=== PATIENT | male | born 1940 | race Caucasian/White ===

== ENCOUNTER 2021-09-22 09:54 | Day surgery (SDC) | payer OTHER, MEDICARE ==
[~2021-09-22 09:54] MED LIST: ASPI325EC; CYCL10 PO; GUAPHELA PO; HYDACE5 PO; HYDGUAL120 PO; NAPR500; VARDENAFIL; [UNRECOGNIZED DRUG - REMARK]
== END 2021-09-22 16:42 | disposition home or self-care (01) ==
LOC: ATC 09:54
DX: C67.9 Malignant neoplasm of bladder, unspecified (principal); C79.51 Secondary malignant neoplasm of bone; I10 Essential (primary) hypertension; D64.9 Anemia, unspecified; Z87.891 Personal history of nicotine dependence
CPT/HCPCS: 36415; 36430; 86850; 86900; 86901; 86920; A9270; J1642; J7050; P9016

== ENCOUNTER 2024-01-09 16:07 | Inpatient (IN) | payer OTHER, MEDICARE ==
[~2024-01-09] VITALS: Ht 185.4 cm; Wt 83.2 kg
[2024-01-09] MEDS ORDERED: FentaNYL Citrate 50 MCG/ML 2 ML Injection IV ONE ×2 (16:55→19:00)
[2024-01-09] MEDS ORDERED: Ondansetron HCl 2 MG / ML 2ML Vial IV ONE (17:00)
[2024-01-09] MEDS ORDERED: OXYC5 PO (17:30)
[2024-01-09] MEDS ORDERED: FentaNYL Citrate 50 MCG/ML 2 ML Injection IV PRN (19:00)
[2024-01-09] MEDS ORDERED: Ondansetron HCl 2 MG / ML 2ML Vial IV PRN (19:00)
[2024-01-09] MEDS ORDERED: Metoclopramide HCl 5MG / ML 2ML Vial IV PRN (19:00)
[2024-01-09] MEDS ORDERED: OxyCODONE HCL 5 MG TAB PO PRN (19:05)
[2024-01-09] MEDS ORDERED: Acetaminophen 325 MG TABLET PO PRN (19:05)
[2024-01-09] MEDS ORDERED: NS 1,000 ML IV SCH (19:05)
[2024-01-09 20:05] LABS: Hematocrit 35.2 % (37.0-53.0); Mean Corpuscular HGB 31.6 pg (26.0-34.0); Mean Corpuscular HGB Conc 34.1 g/dL (31.5-36.5); Mean Corpuscular Volume 93 fL (80-100); Mean Platelet Volume 8.7 fL (9.1-12.4); Platelet Count 170 K/mm3 (150-400); RDW Standard Deviation 43.9 fL (35.1-46.3); White Blood Cell Count 10.11 K/mm3 (4.00-11.30)
[2024-01-09] MEDS ORDERED: NS 1,000 ML IV ONE (20:07)
[2024-01-09 20:25] LABS: Albumin, Blood 3.3 g/dL (3.4-5.0); Albumin/Globulin Ratio 1.1 (0.8-1.8); Bilirubin, Total 0.4 mg/dL (0.1-1.0); Bun/Creatinine Ratio 21.2 (12.0-20.0); Calcium, Blood 8.6 mg/dL (8.5-10.1); Creatinine, Blood 0.9 mg/dL (0.60-1.20); Globulin, Blood 2.9 g/dL (2.2-4.0); Potassium, Blood 4.4 mmol/L (3.5-5.5); Total Protein, Blood 6.2 g/dL (6.4-8.2)
[2024-01-09] MEDS ORDERED: Docusate Sodium 100 MG Cap PO SCH (21:00)
[2024-01-09] MEDS ORDERED: Norco 10-325 T1 EACH PO (21:08)
[2024-01-09 21:10] VITALS: BP 143/77
--- NOTE | 2024-01-09 21:12 | NUR ---
ARRIVAL TO UNIT PT ARRIVED TO UNIT FROM ER BY SOTO. PT TRANSFERRED OVER TO BED USING SLIDER SHEET. ALL EXTRA LINENS OUT FROM UNDER PT. PT ABLE TO ANSWER ALL QUESTIONS ASKED. PT IN PAIN FROM BEING MOVED AROUND, MEDICATED PER EMAR. PT ABLE TO WIGGLE TOES, DENIES N/T TO LLE. PT HAS SOME SWELLING IN L THIGH. PT ON 2 L NC DUE TO DESATTING WHEN GIVEN IV NARCOTICS. VSS. PT WILL BE NPO AT [facility] FOR POSSIBLE SURGERY TMRROW. CALL LIGHT WITHIN REACH
[2024-01-10] VITALS (23 sets, daily range): BP systolic 110–169; BP diastolic 59–86
--- NOTE | 2024-01-10 04:46 | NUR ---
SHIFT SUMMARY NO ACUTE CHANGES SINCE COMING TO THE FLOOR. PT RESTED T/O THE NIGHT. PAIN MANAGED PER EMAR. PT ABLE TO WIGGLE TOES ON LLE. PT ON 2L NC TO MAINTAIN SATS ABOVE 92%. VSS. NO OTHER CONCERNS AT THIS TIME, CALL LIGHT WITHIN REACH
[2024-01-10] MEDS ORDERED: Lactated Ringer's 1,000 ML IV SCH (10:00)
[2024-01-10] MEDS ORDERED: Bupivacaine 0.5% Inj 10 ML Vial ONE (10:18)
[2024-01-10] MEDS ORDERED: CeFAZolin Sodium 2,000 MG in NS 100 ML IV SCH (10:20)
[2024-01-10] MEDS ORDERED: Tranexamic Acid 100 ML IV SCH (10:21)
--- NOTE | 2024-01-10 10:26 | NUR ---
PT HERE FROM 215 VIA BED FOR LEFT TFN. PT WAS CONSENTED BY DR. AMES IN ROOM W/ PRESENT. Pre-Op teaching done. Pt verbalizes understanding. History, Chart, Medications and Allergies reviewed before start of procedure.Patient confirms NPO status and agrees with scheduled surgery.
--- NOTE | 2024-01-10 10:35 | NUR ---
PT TO OR
[2024-01-10] MEDS ORDERED: FentaNYL Citrate 50 MCG/ML 2 ML Injection ONE ×2 (10:39→12:26)
[2024-01-10] MEDS ORDERED: propofoL 20 ML IV ONE (10:39)
[2024-01-10] MEDS ORDERED: Rocuronium Bromide 10 MG/ML 5ML Injection IV ONE (11:07)
[2024-01-10] MEDS ORDERED: HYDROmorphone HCl/Pf 1MG SYR ONE ×2 (11:11→12:12)
[2024-01-10] MEDS ORDERED: Metoclopramide HCl 5MG / ML 2ML Vial ONE (11:39)
[2024-01-10] MEDS ORDERED: Ondansetron HCl 2 MG / ML 2ML Vial ONE (11:39)
[2024-01-10] MEDS ORDERED: Bupivacaine 0.5% Inj 50 ML Vial ONE (11:47)
[2024-01-10] MEDS ORDERED: Sugammadex Sodium 200 MG/2ML SDV (100 MG/ML) ONE (11:59)
--- NOTE | 2024-01-10 14:05 | NUR ---
PT BACK TO 215 FROM PACU. AQUACEL DRESSINGS X3 TO LLE. PLACED ON TELE, SR @ 89. CALL LIGHT IN REACH. PROVIDED WATER AND JELLO. ORDERED MEAL TRAY. LAB IN TO DRAW PATIENT. BEDSIDE. CALL LIGHT IN REACH.
[2024-01-10 14:35] LABS: Bun/Creatinine Ratio 21.2 (12.0-20.0); Calcium, Blood 7.8 mg/dL (8.5-10.1); Creatinine, Blood 0.9 mg/dL (0.60-1.20); Magnesium, Blood 1.9 mg/dL (1.6-2.4); Potassium, Blood 4.2 mmol/L (3.5-5.5); Thyroid Stimulating Hormone 3.1 uIU/mL (0.360-4.800)
--- NOTE | 2024-01-10 14:58 | NUR ---
TURNED OVER CARE TO HALLEY Ibanez RN.
--- NOTE | 2024-01-10 15:10 | NUR ---
CARE ASSUMED OF PT. PT AWAKE, ALERT AND ORIENTED, HE PARTICIPATED WITH BEDSIDE REPORT. PT REPORTS PAIN IS MANAGED AT THIS TIME.
--- NOTE | 2024-01-10 17:08 | NUR ---
SHIFT SUMMARY PT IS POD#0 FROM L HIP REPAIR. PAIN MANAGED WITH PO PAIN MEDICATION. NO CHANGES TO REPORT SINCE CARE ASSUMED OF PT.
[2024-01-11] MEDS ORDERED: OxyCODONE HCL 5 MG TAB PO PRN (01:08)
[2024-01-11 02:41] VITALS: BP 126/69
--- NOTE | 2024-01-11 04:40 | NUR ---
SHIFT SUMMARY POD 1 L HIP NAILING PT ABLE TO REST DURING THE NIGHT. PAIN MANAGED PER EMAR. TOLERATING PO INTAKE. VOIDING. PT HAS NOT BEEN OOB. PT ON 1L NC TO MAINTAIN SATS ABOVE 92%. PT HAS X3 AQUACEL TO L HIP, ALL C/D/I. PT DENIES N/T TO LE'S, ABLE TO WIGGLE TOES. VSS. NO OTHER CONCERNS AT THIS TIME, CALL LIGHT WITHIN REACH
[2024-01-11 04:42] LABS: BASOPHILS ABSOLUTE AUTO 0.03 K/mm3 (0.00-0.23); BASOPHILS PERCENT AUTO 0 % (0-2); EOSINOPHILS ABSOLUTE AUTO 0.09 K/mm3 (0.00-0.68); EOSINOPHILS PERCENT AUTO 1 % (0-6); Hematocrit 26.3 % (37.0-53.0); Hemoglobin 8.9 g/dL (13.5-17.5); IMMATURE GRAN ABSOLUTE AUTO 0.03 K/mm3 (0.00-0.10); IMMATURE GRAN PERCENT AUTO 0 % (0-1); LYMPHOCYTES ABSOLUTE AUTO 1.45 K/mm3 (0.84-5.20); LYMPHOCYTES PERCENT AUTO 21 % (21-46); MONOCYTES ABSOLUTE AUTO 0.65 K/mm3 (0.16-1.47); MONOCYTES PERCENT AUTO 9 % (4-13); Mean Corpuscular HGB Conc 33.8 g/dL (31.5-36.5); Mean Corpuscular Volume 95 fL (80-100); Mean Platelet Volume 9.2 fL (9.1-12.4); NEUTROPHILS ABSOLUTE AUTO 4.83 K/mm3 (1.96-9.15); NEUTROPHILS PERCENT AUTO 68 % (41-73); Platelet Count 150 K/mm3 (150-400); RDW Coefficient Variation 12.6 % (11.7-14.2); RDW Standard Deviation 43.8 fL (35.1-46.3); Red Blood Cell Count 2.78 M/mm3 (4.30-5.90); White Blood Cell Count 7.08 K/mm3 (4.00-11.30)
[2024-01-11 05:13] LABS: Bun/Creatinine Ratio 17.9 (12.0-20.0); Calcium, Blood 7.6 mg/dL (8.5-10.1); Creatinine, Blood 0.84 mg/dL (0.60-1.20); Potassium, Blood 4.1 mmol/L (3.5-5.5)
[2024-01-11 07:45] VITALS: BP 122/63
[2024-01-11] MEDS ORDERED: Enoxaparin 40 MG/0.4 ML SYR SC SCH (09:00)
--- NOTE | 2024-01-11 11:37 | NUR ---
Pt. is awake in a recliner when he welcomes my visit. Spouse is at bedside. Facilitate a life review. Pt. verbalizes that they are people of [place], but do not have a local adventist that they have been a part of. Listen with interest and a calming presence. Pt. verbalized about the [place] which happened at the [place] that brought him to [facility] for surgery. Again, listen with empathy and interest. Pt. displayed evidence of being aware and engaged. Prayed with Pt. and spouse. Both verbalized gratitudwe for the spiritual care visit.
[2024-01-11 14:12] VITALS: BP 116/56
--- NOTE | 2024-01-11 17:56 | NUR ---
SHIFT SUMMARY POD1 L HIP PINNING, AQUACEL CDI, PHYSICAL THERAPY EVAL'D-AWAITING SNF PLACEMENT, AMB 1 PP MIN ASSIST WITH FWW/GB, UP TO CHAIR T/O SHIFT, A&OX4, VSS/RA/TELE NSR 87 BPM, KWADWO PO, VOIDING, PAIN MANAGED WITH 5 MG OXY AND TYLENOL TODAY. WILL REPORT TO ONCOMING NOC DARRIUS.
--- NOTE | 2024-01-11 18:40 | NUR ---
TELEPHONE CALL TO DR COCHRAN R/T CALL FROM TELE WITH 2 RUNS SVT UP TO 160 FIRST ONE SUSTAINING UP TO 40 SECS THE SECOND 4 SECS; NEW ORDER RECEIVED FOR METOPROLOL TARTRATE 25 MG BID START NOW.
[2024-01-11 18:48] VITALS: BP 108/55
[2024-01-11] MEDS ORDERED: Metoprolol Tartrate 25 MG Tab PO SCH (18:50)
[2024-01-11 19:00] VITALS: BP 120/88
[2024-01-12 03:29] VITALS: BP 127/60
--- NOTE | 2024-01-12 04:53 | NUR ---
SHIFT SUMMARY POD 2 L HIP NAILING PT ABLE TO SLEEP DURING THE NIGHT. PAIN MANAGED PER EMAR. TOLERATING PO INTAKE, VOIDING. PT TRANSFERS 2P W/ FWW AND GB. PT ABLE TO WIGGLE TOES AND DENIES N/T. AQUACEL TO L HIP ARE C/D/I. VSS. NO OTHER COCNERNS AT THIS TIME, CALL LIGHT WITHIN REACH
[2024-01-12 07:48] VITALS: BP 120/63
--- NOTE | 2024-01-12 10:35 | NUR ---
THERAPY: THERAPY IN ROOM TO WORK WITH PATIENT. PATIENT ALREADY IN CHAIR THIS AM WITH NURSING STAFF, 2 PERSON ASSIST. WILL CONT TO MONITOR PROGRESS.
[2024-01-12 13:20] LABS: SARS-Cov-2 (COVID-19) PCR, MMC NEGATIVE (NEGATIVE)
[2024-01-12 15:37] VITALS: BP 106/51
--- NOTE | 2024-01-12 16:57 | NUR ---
DISCHARGE PLANNING: DC [facility] IN ROOM AT EARLIER TIME TO DISCUSS DC TODAY TO FACILITY. PT BECAME AGITATED AT THE POSSIBILITY OF DC TODAY AND [facility] DC [facility] HAS BEEN EDUCATING AND EXPLAINING DC PROCESS TO PATIENT AND SIGNIFICANT OTHER. PT REFUSED TO FILE APPEAL TO DC. WILL CONT TO MONITOR DC [facility] CONT TO TRY TO WORK WITH PATIENT AND SIGNIFICANT OTHER.
--- NOTE | 2024-01-12 18:28 | NUR ---
DISCHARGE: PT TO DISCHARGE TO [facility] TONIGHT. FAMILY AND PT AGREEABLE TO PLAN. IV DC'D WNL. PT ASSISTED TO GET DRESSED. BELONGINGS PACKED. REPORT CALLED TO ACCEPTING RN.
--- NOTE | 2024-01-12 19:37 | NUR ---
PT AWAITING TRANSFER TO SNF STILL AT THIS TIME. SIG OTHER BROUGHT IN ELEVATED BOOTS FOR TRANSFER ASSIST R/T PT BASELINE DEFICITS. NOC RN GIVEN REPORT AND WILL MEDICATE FOR PAIN PRIOR TO TRANSFER.
[2024-01-12 20:52] VITALS: BP 115/52
--- NOTE | 2024-01-12 21:12 | NUR ---
ATTEMPTED TO CALL [facility] TO UPDATE THEM THAT [facility] HAS ARRIVED TO TRANSPORT PT TO THEIR FACILITY, TRANSFERED TO "SIDE TAKING ADMISSIONS". NO ANSWER. SPOKE TO ORIGINIAL STAFF MEMBER WHO TOOK MESSAGE AND CONFIRMED PT'S ORDERS HAD BEEN RECIEVED AND PROCESSED AND THEY ARE AWAITING PT'S ARRIVAL. UPDATED NURSING COMMERCIAL LOAN CLOSER AND AMBULANCE OFFICER.
--- NOTE | 2024-01-12 21:20 | NUR ---
DISCHARGE [facility] ARRIVED TO [facility] THIS PATIENT. EMT GIVEN DISCHARGE PACKET AND BLUE SHEET. PATIENT STATED UNDERSTANDING OF HIS DISCHARGE AND THAT HE HAS NO FURTHER QUESTIONS AT THIS TIME. ALSO VOICED THIS. PATIENT LEFT ON [place], NO IV PRESENT.
--- NOTE | 2024-01-12 21:21 | NUR ---
DISCHARGE NOTE THIS RN ASSUMED CARE AT APPROX 191. PATIENT ALERT AND ORIENTED X4. MEDICATED PER EMAR FOR 8/10 L HIP PAIN. REPORTING RELIEF. DRESSINGS TO LLE C/D/I. VSS. SCHEDULED EVENING PO MEDICATIONS ADMINISTERED PER EMAR. PATIENT AND AT BEDSIDE, DECLINING FURTHER NEEDS PRIOR TO DC. TRANSPORT ARRIVED AT APPROX 2114. PATIENT TRANSFERRED TO [facility] WITH 2 PERSON ASSIST. PATIENT TRANSFERRED OFF UNIT AT APPROX 2122.
== END 2024-01-12 21:22 | DRG 481 ==
LOC: ER 16:07 → SURS 19:00
PROVIDERS: Internal Medicine; Nurse Practitioner Acute Care; Orthopaedic Surgery; ADMIT Internal Medicine
PROC: 0QS736Z Reposition Left Upper Femur with Intramedullary Internal Fixation Device, Percutaneous Approach (ICD-10-PCS; principal; 2024-01-10 10:30)
DX: S72.142A Displaced intertrochanteric fracture of left femur, initial encounter for closed fracture (principal); D62 Acute posthemorrhagic anemia; I47.10 Supraventricular tachycardia, unspecified; I49.3 Ventricular premature depolarization; C61 Malignant neoplasm of prostate; Z85.51 Personal history of malignant neoplasm of bladder
CPT/HCPCS: 36415; 72192; 73502; 80048; 80053; 83735; 84443; 85025; 85027; 93005; 93010; 96374; 96375; 97110; 97162; 97530; 99285-25; A9270; C1713; C1769; J0690; J1170; J1650; J2405; J2704; J2765; J3010; J7030; J7120; U0002